=== PATIENT | male | born 1965 | race Caucasian/White ===

== ENCOUNTER 2021-03-22 15:25 | Inpatient (IN) | payer OTHER ==
[~2021-03-22 15:25] MED LIST: AUGMENTIN 875-1 EACH PO; HIV MED; PREDNISONE 20MG20 MG PO; PROAIR HFA8.5 GM INH; ZOFRAN4 MG PO
[2021-03-22 18:24] LABS: BASOPHIL 0.4 % (0-2); EOSINOPHIL 0 % (0-5); HCT 41.5 % (42.0-52.0); LYMPHOCYTE 20.8 % (15-48); MCH 30.6 pg (25.0-31.0); MCHC 33.7 g/dL (32.0-36.0); MCV 90.8 fL (78.0-100.0); MONOCYTE 10.3 % (0-12); MPV 9.8 fL (6.0-9.5); NEUTROPHIL 68.3 % (41-80); NRBC 0; PLT 132 K/uL (150-400); RBC 4.57 M/uL (4.70-6.00); RDW 13.2 % (11.5-14.0); WBC 5.2 K/uL (4.0-10.5)
[2021-03-22 18:47] LABS: LACTIC ACID 1.4 mmol/L (0.4-1.9)
[2021-03-22 18:53] LABS: ALBUMIN 3.7 g/dL (3.4-5.0); BILIRUBIN - TOTAL 0.4 mg/dL (0.2-1.0); BUN/CREAT RATIO (CALC) 18.4 RATIO; CREATININE 0.98 mg/dL (0.67-1.17); GLOBULIN (CALCULATION) 4.3 g/dL; POTASSIUM 4.9 mmol/L (3.5-5.1)
[2021-03-22] MEDS ORDERED: PREDNISONE 20MG20 MG PO (21:58)
[2021-03-23 05:35] LABS: BASOPHIL 0.9 % (0-2); EOSINOPHIL 0.4 % (0-5); HCT 37.9 % (42.0-52.0); HGB 12.8 g/dl (13.2-18.0); LYMPHOCYTE 30.8 % (15-48); MCH 30.5 pg (25.0-31.0); MCHC 33.8 g/dL (32.0-36.0); MCV 90.2 fL (78.0-100.0); MONOCYTE 14.9 % (0-12); MPV 9.9 fL (6.0-9.5); NEUTROPHIL 52.6 % (41-80); NRBC 0; PLT 123 K/uL (150-400); RDW 13.3 % (11.5-14.0); WBC 4.5 K/uL (4.0-10.5)
[2021-03-23 06:01] LABS: BUN/CREAT RATIO (CALC) 17.5 RATIO; CREATININE 1.14 mg/dL (0.67-1.17); POTASSIUM 4.6 mmol/L (3.5-5.1)
--- NOTE | 2021-03-23 11:01 | NUR ---
Mr. Palacio triggered for nutritional screen d/t MST of 5, reporting recent wt loss with out trying and unsure of amt of wt loss. Review of the medical H&P documents patient denies recent wt loss. Past wt history not available in [facility]. Pt on regualr diet with intake 100%. will monitor intake and visit for clarification of medical concerns.
[2021-03-24 06:17] LABS: HCT 39.9 % (42.0-52.0); HGB 13.2 g/dl (13.2-18.0); MCH 30.7 pg (25.0-31.0); MCHC 33.1 g/dL (32.0-36.0); MCV 92.8 fL (78.0-100.0); MPV 9.6 fL (6.0-9.5); RBC 4.3 M/uL (4.70-6.00); RDW 13.4 % (11.5-14.0); WBC 4.3 K/uL (4.0-10.5)
[2021-03-24 06:39] LABS: BUN/CREAT RATIO (CALC) 13.1 RATIO; CREATININE 1.3 mg/dL (0.67-1.17); POTASSIUM 4.6 mmol/L (3.5-5.1); VANCOMYCIN, TROUGH 9.2 ug/mL (10-20)
[2021-03-26 06:24] LABS: BUN/CREAT RATIO (CALC) 13.3 RATIO; CREATININE 1.05 mg/dL (0.67-1.17); POTASSIUM 4.4 mmol/L (3.5-5.1); VANCOMYCIN, TROUGH 16.7 ug/mL (10-20)
[2021-03-27 06:13] LABS: HCT 34.7 % (42.0-52.0); HGB 11.7 g/dl (13.2-18.0); MCHC 33.7 g/dL (32.0-36.0); MCV 91.8 fL (78.0-100.0); MPV 9.8 fL (6.0-9.5); RBC 3.78 M/uL (4.70-6.00); RDW 13.6 % (11.5-14.0)
[2021-03-27 06:49] LABS: BUN/CREAT RATIO (CALC) 14.2 RATIO; CREATININE 1.06 mg/dL (0.67-1.17); POTASSIUM 3.7 mmol/L (3.5-5.1)
--- NOTE | 2021-03-31 12:34 | NUR ---
03/31/21 Discharge is anticipated for 04/02/21. Oral antibiotics will be ordered opposed to IV at discharge.
--- NOTE | 2021-03-31 18:13 | NUR ---
1812 NOTIFED [facility] OF THE VANCOMYCIN TROUGH 14.2. ANN MARIE FROM [facility] SAID TO HANG THE 1800 DOSE OF VANCOMYCIN. [facility] WILL FOLLOW UP IN THE MORNING.
[2021-04-01 07:37] LABS: BASOPHIL 0.9 % (0-2); EOSINOPHIL 4.9 % (0-5); HCT 37.8 % (42.0-52.0); HGB 12.6 g/dl (13.2-18.0); LYMPHOCYTE 34.1 % (15-48); MCH 31.4 pg (25.0-31.0); MCHC 33.3 g/dL (32.0-36.0); MCV 94.3 fL (78.0-100.0); MONOCYTE 13.9 % (0-12); MPV 8.8 fL (6.0-9.5); NRBC 0; PLT 193 K/uL (150-400); RBC 4.01 M/uL (4.70-6.00); RDW 14.4 % (11.5-14.0); WBC 4.3 K/uL (4.0-10.5)
[2021-04-01 07:53] LABS: BUN/CREAT RATIO (CALC) 20.8 RATIO; CREATININE 0.96 mg/dL (0.67-1.17); MAGNESIUM 2.1 mg/dL (1.8-2.4); POTASSIUM 4.7 mmol/L (3.5-5.1)
[2021-04-02] MEDS ORDERED: NORCO 5-325 TA1 EACH PO (13:53)
[2021-04-02] MEDS ORDERED: BACTRIM DS TAB1 EACH PO (13:53)
[2021-04-02] MEDS ORDERED: CEFDINIR300 MG PO (13:53)
[2021-04-02] MEDS ORDERED: IBUPROFEN400 M1 PO (13:53)
[2021-04-02] MEDS ORDERED: NEURONTIN600 MG PO (13:53)
--- NOTE | 2021-04-02 15:14 | NUR ---
04/02/21 Mr. Palacio will be discharged today. He reports plans to call the [facility] and they will transport him to the detention. Captain Natalia Renae ([phone] option # [phone]) reports that she will brass pickler the prescriptions sent to [facility].
== END 2021-04-02 15:49 | DRG 603 ==
LOC: FER 15:25 → FMS 20:00
PROVIDERS: Hospitalist; Internal Medicine; Nurse Practitioner; Physician Assistant; ADMIT Allergy & Immunology Allergy
PROC: 8E0ZXY6 Isolation (ICD-10-PCS; principal; 2021-03-23)
DX: L03.211 Cellulitis of face (principal); B02.8 Zoster with other complications; N17.9 Acute kidney failure, unspecified; Z20.822 Contact with and (suspected) exposure to COVID-19; Z79.52 Long term (current) use of systemic steroids; Z87.891 Personal history of nicotine dependence
CPT/HCPCS: 36415; 70487; 80048; 80053; 80202; 83605; 83735; 85025; 87040; J0133; J0696; J1650; J2270; J2405; J2543; J3370; J7040; J7050; J7060; J7120; Q9967; U0002